=== PATIENT | female | born 1965 | race American Indian/Alaskan Native ===

== ENCOUNTER 2017-04-16 09:37 | Day surgery (SDC) | payer OTHER ==
[2017-04-16] MEDS ORDERED: NACL 0.9% 1000 ML 1,000 ML IV SCH (11:00)
[2017-04-16] MEDS ORDERED: WATER FOR IRRIG STERILE IR ONE (13:39)
[2017-04-16] MEDS ORDERED: DIPRIVAN 10 MG/ML IV ONE ×2 (13:44→13:45)
--- NOTE | 2017-04-16 14:00 | Anesthesia Day of Surgery ---
Anesthesia Day of Surgery - Day of Surgery Patient Examined: Yes Patient H&P Reviewed: Yes Patient is NPO: Yes
--- NOTE | 2017-04-16 14:01 | Anesthesia Consultation ---
Anesthesia Consult and Med Hx Date of service: 04/16/17 - Airway Anesthetic Teeth Evaluation: Good ROM Head & Neck: Adequate Mental/Hyoid Distance: Adequate Mallampati Class: Class II Intubation Access Assessment: Probably Good - Pulmonary Exam CTA: Yes - Cardiac Exam Cardiac Exam: RRR - Pre-Operative Health Status ASA Pre-Surgery Classification: ASA2 Proposed Anesthetic Plan: General - Central Nervous System Hx Neuromuscular Disorder: Yes (OA)
[2017-04-16] MEDS ORDERED: WATER FOR IRRIG STERILE ONE (14:11)
--- NOTE | 2017-04-16 14:31 | Operative Report ---
Operative Report Operative Report: Date of procedure: 04/16/2017 Procedure: Colonoscopy with hot biopsy polypectomy and Hemoclip application. Attending physician: Bucky Bustillos MD Class A Regional Drivers: Bucky Bustillos MD Indication: Patient is a 51-year-old female who presents for colorectal cancer screening. A colonoscopy is done to evaluate patient so that treatment may be directed based on the findings. Consent: Informed consent was obtained after advising the patient and family regarding nature of this procedure, its indications, potential benefits as well as possible complications including but not limited to bleeding perforation and adverse reaction to medication, infection as well as other cardiopulmonary complications. An informed written and verbal consent was then obtained after due opportunity was provided for questions and answers. Monitoring: Patient was monitored continuously with pulse oximetry and electrocardiographic recordings as well as blood pressure recordings. Vital signs remained stable throughout this procedure with no untoward events. Preoperative assessment: Patient was assessed immediately prior to this procedure for capacity to tolerate monitored anesthesia care and moderate sedation as well as general anesthesia. Patient's ASA classification is 1, Mallampati class is 2, Hyomental distance is 3. Instrument: farmflon videocolonoscope Medications: Propofol given intravenously in divided doses for details please refer to anesthesia records. Description of procedure: Patient was placed in the left lateral decubitus position after achieving sedation, a digital rectal examination was performed following which the colonoscope was introduced into the anal verge and advanced to the cecum which was identified by the cecal valve, the appendiceal orifice, as well as by the cecal strap and direct transillumination. The terminal ileum was then intubated for a distance of 20 cm. The colonoscope was subsequently withdrawn with careful inspection of all mucosal surfaces. Patient tolerated this procedure well and was subsequently taken to the recovery room. The following findings were noted. Findings: Patient has substantial retained stool. There was pancolonic diverticulosis of moderate severity. These involved the ascending colon transverse colon descending colon and sigmoid colon. There was a transverse colon sessile polyp measured approximate 6 mm. This was removed by hot biopsy polypectomy. 2 hemoclips were placed over the polypectomy site because of the defect created there. On the retroflex view at the anal verge patient had internal hemorrhoids. Impression: Transverse colon polyp status post hot biopsy polypectomy and Hemoclip application. Pancolonic diverticulosis. Retained stool. Internal hemorrhoids. Plan: Follow pathology report. High-fiber diet. Repeat colonoscopy in 5 years if polyp is adenomatous.
--- NOTE | 2017-04-16 14:31 | Discharge Summary ---
Short Stay Discharge Plan Activity: advance as tolerated Weight Bearing Status: Weight Bear as Tolerated Diet: regular Follow up with: STEPAN ROA MD [Primary Care Provider] - 7 Days
[2017-04-16 14:55] VITALS: BP 127/82
--- NOTE | 2017-04-16 15:03 | Post Anesthesia Evaluation ---
- Post Anesthesia Evaluation Patient Participated: Yes Airway Patent: Yes Stable Respiratory Function: Yes Temp > 96.8F: Yes Pain Manageable: Yes Adequeate Hydration: Yes Anesthesia Complications: No
== END 2017-04-16 09:38 | disposition home or self-care (01) ==
LOC: GIO 09:37
PROVIDERS: ATTEND Internal Medicine Gastroenterology
DX: Z12.11 Encounter for screening for malignant neoplasm of colon (principal); K63.89 Other specified diseases of intestine; K57.30 Diverticulosis of large intestine without perforation or abscess without bleeding; K64.8 Other hemorrhoids; Z80.0 Family history of malignant neoplasm of digestive organs; Z86.010 Personal history of colon polyps; Z98.890 Other specified postprocedural states
CPT/HCPCS: 45384; 88305; J2704; J7030